=== PATIENT | female | born 1985 | race Caucasian/White ===

== ENCOUNTER → 2016-12-23 | Day surgery (SDC) | payer OTHER ==
--- NOTE | 2016-12-20 17:09 | PDGENHP ---
History and Physical - Chief Complaint RIGHT HIP PAIN - History of Present Illness 1. Bilateral~Femoroacetabular impingement (DEANDRA) Cam type, with~resultant labral tear; RIGHT hip symptomatic 2. ~~Pudendal nerve dysfunction HISTORY OF PRESENT ILLNESS: Lorenais a 31 y.o.~~active female~who I have had the pleasure to consult on today.~I have enjoyed meeting her. She~lives in [place], [place]. 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 ~She~is ; she~has no children. ~Lorenaenjoys walking, dancing (ballet), triathalons (she has been limited in these activities by pain). Emma's~right hip pain~started in 2004, with no~recalled trauma or injury, and with no~previous complaints.~Lorenadoes not have~a known history of hip dysplasia. 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 Presentation today is of~anterior right~hip pain. ~The hip does not~wake her~at night and does~click and catch on her. Sitting can be uncomfortable for her. Lorenadoes not~report suffering from lower back pain episodes. Lorenahas~participated in physical therapy (for 6 months) and has not~tried other conservative measures. Lorenahas not~utilized medication for pain management. Lorenahas issues with the left hip. ~ Lorenaunderstands that she~has a hip and pelvis problem which should be researched and wishes to get a better understanding of her~hip status, followed by an establishment of a treatment strategy, hoping she~would be able to get back to her~well being active life. History: Past medical history: ~ Pudendal nerve Dysfunction Relevant familial history: Father: diabetes, HTN ~~~~~~~~~~~~~~~~~~~~~~~~~~~~~~~~~~~~Mother: hypothyroid Past surgical history: None Lorenahas never received general anesthesia. I have reviewed, verified and agree with the past medical, surgical, family and social history. Current Medications:~currently has no medications in their medication list. ALLERGIES:~has No Known Allergies. Objective: Physical Examination: Lorenais 5 feet 8~inches tall and weighs~136~Lbs. Emma~is AAO x3; she~is well -nourished, in NAD. Skin is warm and dry. ~Breathing is non-labored. ~CV with RRR by pulse. Abdomen is soft, NTND. Currently, she~walks with a normal~gait. Trendelenburg sign is negative and proprioception~is normal, both~sides. She~presents~with mild~signs of joint laxity.~Beightons Score: 2 Lower spine examination is negative~for sciatic or femoral nerve irritation with negative~SLR &~femoral stretch tests. Range of motion of the spine is normal~for flexion, extension, and rotations, with no~associated pain. Strength, Sensation and pulses are normal - bilaterally Ankles and knees exams are normal~and no~mal-alignment is evident. She~has~left~0.5 cm short leg length discrepancy. Thigh circumference is symmetric with no evidence for muscle atrophy on both~ sides. Hip ROM (degrees): FL ER At 90~hip FL IR At 90~hip FL AB AD EX IR Neutral hip ER Neutral hip R 110 55 30 40 10 10 60 45 L 110 50 30 45 10 10 55 30 Specific hip and pelvis tests: Quadrant MARBELLA Roll Add. Longus R +++ (not same pain as pelvic floor) +++ (not same pain as pelvic floor) Negative + L ++ ++ Negative + Glut. Med ITB Pos. Imp R Negative 5/5 strength Negative 5/5 strength Negative L Negative 5/5 strength Negative 5/5 strength Negative Squeeze test measured weak Bony Symphysis pubis is painful to touch while concentric activity of the rectus abdominis, does not~produce pain at its insertion. Ilio Psos specific tests are positive for pain during cycling for the right hip~ and remarkable for painful snap. HF has pain the right hip. Bilateral anterior capsule tenderness Greater trochanteric burse is pain free on both hips. Piriformis tests: FAIR is negative, with no local signs of neuritis related to sciatic nerve. SIJs examination is normal with normal~MARBELLA in relation and local tenderness. Hamstrings tests are negative~functional contraction and positive~tendinopathy the right hip. On a daily basis, the following percentages reflect Emma's overall total pain: Deep hip: 100% Imaging: Radiology studies which I~have personally reviewed, analyzed and measured are below: XR: AP of the hip and pelvis: Performed in a good~technique Coccyx is at the level of the pubic symphysis 7 degrees caudal [place]~Lines are preserved. Minimal Pathological signs are seen in the Symphysis Pubis. Minimal Pathological signs are seen at the Ischial~tuberosity. ~ Specific measurements show: NSA~ LCE Sourcil~Angle Sharp's angle Lat. Cam Lat. Pincer C.Over~sign Head~Coverage % ATDmm R N 33 4 37 + - - N N L N 37 3 39 + - - N N Pos. wall sign ISS NAD ~~Dysplasia Comments R Negative Negative 14.9 mm negative L Negative Negative 13.7 mm negative Sclerosis Sup. Lat. OA Cysts Joint Space-WBZ Joint Space-Medial R Negative Negative Negative 5.3 mm 3.6 mm L Negative Negative Negative 4.8 mm 3.1 mm X Table lateral: Anterior cam lesion is seen~on both hips. Alpha Angle: ~ Right 65 dergrees Left [address] MEASUREMENTS: Right hip: Lateral center edge angle: 37 degrees Anterior center edge angle: 54 degrees Equ[place] acetabular version angle: 21 degrees anteverted. Cranial acetabular version angle: 27 degrees anteverted. Femoral neck shaft angle: 133 degrees Femoral neck version angle: 4 degrees anteverted. Right femoral torsion measures 17 degrees. Left hip: Lateral center edge angle: 35 degrees Anterior center edge angle: 51 degrees Equatorial acetabular version angle: 18 degrees anteverted. Cranial acetabular version angle: 23 degrees anteverted. Femoral neck shaft angle: 130 degrees Femoral neck version angle: 16 degrees anteverted. Left femoral torsion measures 27 degrees. Impression and plan:~ Emma~is a 31 y.o.~active female~suffering from symptomatic right hip pain due to Bilateral~Femoroacetabular impingement (DEANDRA) Cam type~causing significant disability to her~and altering~her~sport and life activities. Physical examination, imaging, and her~story correspond with the diagnosis mentioned above. I explained that hip dysplasia is a condition wherein the hip joint has excessive play~and instability due to a variety of factors, including the depth and adequacy of the socket, the orientation of the femur bone, and ligament laxity around the hip joint. Dysplasia ranges in severity from borderline to autumn, with treatment options being specific to the specific nature of the problem. Left untreated, the instability in the hip joint can cause progressive tearing of the labrum and deterioration of the surface cartilage, ultimately resulting in progressive osteoarthritis of the hip. I explained that femoroacetabular impingement (DEANDRA - Cam type) arises due to a bony or soft tissue conflict between the femur (ball) and acetabulum (socket) caused by an abnormality in the shape of the femoral head and neck. Over time, repetitive impingement can result in damage to the labrum and adjacent surface cartilage within the socket, ultimately giving rise to progressive osteoarthritis of the hip. I explained that although a labral tear can be a source of pain, it is rarely the root of the problem and typically occurs secondary to an underlying abnormality in the shape and mechanics of the hip joint. I reviewed conservative treatment options for Dysplasia and DEANDRA including activity modification to avoid positions of impingement or instability, physical therapy, non-steroidal anti-inflammatory medications, and various injections (corticosteroid and PRP) aimed at reducing inflammation in the hip joint or/and preventing dynamic instability and impingement. PRP injections may promote healing and reduce symptoms in certain cases but it will not repair chronically damaged tissue. Although these measures may help to buy time~and reduce current level of symptoms, they are not a definitive solution to the problem given the underlying abnormality in the shape of the hip joint. Patients who have failed conservative management and continue to experience symptoms are candidates for definitive surgical treatment, which may consist of hip arthroscopy alone or in combination with more invasive bony realignment procedures of the hip socket and/or femur called periacetabular osteotomy (LASHANDA) or derotational femoral osteotomy (DFO). Hip arthroscopy typically includes treating the labrum with either repair or reconstruction of the torn labrum; as well as addressing the underlying abnormalities by restoring the normal shape to the hip joint. If the cartilage is damaged a Microfracture surgical procedure may also be necessary to help stimulate the growth of fibrocartilage. If a patient requires a labral reconstruction or a Microfracture, the initial rehabilitation from the surgery may take longer, but the long line teamster results are typically favorable. I reviewed the technical aspects of hip arthroscopy including risks, benefits, and expected course of recovery. Emma~understands that hip arthroscopy is a minimally invasive outpatient procedure carried out through small incisions on the outer aspect of the hip joint. During surgery, the labral tear will be identified and either repaired or reconstructed~using bone anchors and suture material. Additionally, any excessive bone will be removed with a high-speed osmany to reshape the hip joint and restore normal anatomy. Risks include infection, bleeding, injury to nearby nerves or vessels, stiffness, persistent pain, instability, venous thromboembolic disease, and traction related complications including temporary foot numbness. Rarely, revision surgery may be required to address these problems. Overall recovery takes approximately 4~~ 8~months depending on the extent of damage and degree of repair. In the event that the labral tissue quality is inadequate for successful repair and healing, Lorenaunderstands that a labral reconstruction will be performed. This procedure entails placing a cadaver tissue graft within the hip joint and stabilizing it with bone anchors to build a new labrum. The overall recovery time for labral reconstruction is similar to that of labral repair, although the surgical procedure takes longer to perform. Emma~will review the info presented. In order to obtain more detailed information regarding the alignment, orientation, and shape of the bony hip and pelvis I will order a CT scan to be performed. The results of the CT scan, including femoral torsion and acetabular version measured values and 3D images, will aid me in deciding on the best treatment strategy and surgical pre-planning. Lorenawill contact us if she~wishes to pursue further treatment in the future. Lorenais happy with this plan. I have also supplied her~with handouts, outlining the expected surgical treatment and rehab involved. I wish~EmmaMaritzaall the best, ~~ Felice Thompson, PAC History Information - Allergies/Home Medication List Allergies/Adverse Reactions: No Known Allergies Allergy (Unverified 11/29/16 10:13) Home Medications: NK [No Known Home Meds] 11/29/16 [Last Taken Unknown] I have personally reviewed and updated: medical history - Social History Smoking Status: Never smoked
[~2016-12-23] MED LIST: ACETAMINOPHEN 500 MG TAB PO ONE; BUPIVACAINE 0.25% 30 ML SDV ONE; DEXAMETHASONE 4 MG/ML VIAL ONE; HYDROmorphONE/DILAUDID 1 MG/ML SYR IVP PRN; HYDROmorphONE/DILAUDID 1 MG/ML SYR ONE; HYDROmorphONE/DILAUDID 2 MG/ML INJ ONE; LIDOCAINE 1% 2 ML INJ ID PRN; LIDOCAINE 2% 5 ML SDV ONE; LR 1,000 ML IV ONE; METOCLOPRAMIDE 10 MG/2 ML VIAL ONE; MIDAZOLAM 2 MG/2 ML VIAL IVP ONE; NALOXONE HCL 0.4 MG/ML INJ IVP PRN; NALOXONE HCL 0.4 MG/ML INJ ONE; ONDANSETRON 4 MG/2 ML VIAL IVP PRN; ONDANSETRON 4 MG/2 ML VIAL ONE; OXYCODONE/APAP 5/325 TAB ONE; OXYCODONE/APAP 5/325 TAB PO ONE; PREGABALIN 150 MG CAP PO ONE; PROPOFOL 200 MG/20 ML VIAL ONE; ROCURONIUM 100 MG/10 ML VIAL ONE; ceFAZolin 2 GM/DEXTROSE 100 ML IV ONE; fentaNYL 100 MCG/2 ML INJ ONE
[2016-12-23 07:38] VITALS: PULSE 74
--- NOTE | 2016-12-23 08:27 | PDANEPAE ---
ANE History of Present Illness 31yo F for Right Hip ANE Past Medical History - Cardiovascular History Hx Hypertension: No Hx Arrhythmias: No Hx Chest Pain: No Hx Coronary Artery / Peripheral Vascular Disease: No Hx CHF / Valvular Disease: No Hx Palpitations: No - Pulmonary History Hx COPD: No Hx Asthma/Reactive Airway Disease: No Hx Recent Upper Respiratory Infection: No Hx Oxygen in Use at Home: No Hx Sleep Apnea: No Sleep Apnea Screening Result - Last Documented: Negative - Neurologic History Hx Cerebrovascular Accident: No Hx Seizures: No Hx Dementia: No - Endocrine History Hx Diabetes: No - Renal History Hx Renal Disorders: No - Liver History Hx Hepatic Disorders: No - Neurological & Psychiatric Hx Hx Neurological and Psychiatric Disorders: No - Cancer History Hx Cancer: No - Congenital Disorder History Hx Congenital Disorders: No - GI History Hx Gastrointestinal Disorders: Yes Gastrointestinal History Comment: acid reflux-well controlled - Other Health History Other Health History: R labral tear-R hip. pelvic floor pain causes severe spasms. - Chronic Pain History Chronic Pain: Yes (pelvic floor) - Surgical History Prior Surgeries: wisdom teeth removal-Dr's office ANE Review of Systems - Exercise capacity METS (RN): 4 METS ANE Patient History - Allergies Allergies/Adverse Reactions: No Known Allergies Allergy (Unverified 11/29/16 10:13) - Home Medications Home Medications: NK [No Known Home Meds] 11/29/16 [Last Taken Unknown] - NPO status NPO Since - Liquids (Date): 12/22/16 NPO Since - Liquids (Time): 23:30 NPO Since - Solids (Date): 12/22/16 NPO Since - Solids (Time): 22:30 - Smoking Hx Smoking Status: Never smoked - Family Anes Hx Family Hx Anesthesia Complications: none ANE Labs/Vital Signs - Vital Signs Blood Pressure: 131/78 Heart Rate: 74 Respiratory Rate: 16 O2 Sat (%): 97 Height: 172.72 cm Weight: 63.503 kg ANE Physical Exam - Airway Neck exam: FROM Mallampati Score: Class 2 Mouth exam: normal dental/mouth exam - Pulmonary Pulmonary: clear to auscultation - Cardiovascular Cardiovascular: regular rate and rhythym - ASA Status ASA Status: I ANE Anesthesia Plan Anesthesia Plan: GA w LMA
--- NOTE | 2016-12-23 11:58 | POSTANESTH ---
Post Anesthetic Evaluation Cardiovascular Status: Normal, Stable Respiratory Status: Normal, Stable Level of Consciousness/Mental Status: Can Participate in Eval, Mildly Sleepy, Arousable Pain Control: Adequate, Prn Tx Ordered Nausea/Vomiting Control: Adequate, Prn Tx Ordered Complications Possibly Related to Anesthesia: None Noted
[2016-12-23] MEDS: fentaNYL 100 MCG/2 ML INJ IVP PRN ×2 (12:17→12:30)
[2016-12-23 13:07] VITALS: TEMP 97.9
[2016-12-23 13:08] VITALS: RESP 12
[2016-12-23 15:22] VITALS: BP 103/72; O2SAT 96
== END | disposition home or self-care (01) ==
LOC: FSGY 07:04
PROVIDERS: ATTEND Orthopaedic Surgery Sports Medicine
PROC: 0SQ94ZZ Repair Right Hip Joint, Percutaneous Endoscopic Approach (ICD-10-PCS; principal; 2016-12-23 08:30)
DX: M25.851 Other specified joint disorders, right hip (principal); G57.81 Other specified mononeuropathies of right lower limb
CPT/HCPCS: 29914; 76001; C1769; C1713; J0171; J0690; J1100; J1170; J2250; J2310; J2405; J2704; J2765; J3010